=== PATIENT | female | born 1990 | race African-American/Black ===

== ENCOUNTER 2019-08-22 18:40 | Emergency (ER) | payer MEDICAID ==
[~2019-08-22] VITALS: Ht 154.9 cm; Wt 76.7 kg
[~2019-08-22 18:40] MED LIST: CYCLOBENZAPRINE10 MG ORAL
--- NOTE | 2019-08-22 19:00 | NUR ---
ED Nurse Note: Patient walked into ED c/o intermittent abdominal pain located on her lower side, patient states that she is 6 months , patient is alert and oriented x4, denies any abdominal bleeding, describes it as a sharp pain that shoots up, this is patient's first , rates her pain a 8/10 pain, IV started on left forearm 20 gauge, labs collected and sent down, will continue to monitor
--- NOTE | 2019-08-22 19:05 | NUR ---
HAND-OFF: Report given to KIMBERLY Aisf.
--- NOTE | 2019-08-22 19:06 | NUR ---
ED Nurse Note: Received report from Bry HARRIS. Patient went down for US.
[2019-08-22] MEDS ORDERED: Metoclopramide 10mg/2ml Inj IVP ONE (19:15)
[2019-08-22 20:01] LABS: APPEARANCE,URINE CLEAR; BILIRUBIN, URINE NEGATIVE (NEGATIVE); COLOR,URINE PALE YELLOW; GLUCOSE, URINE (UA) NEGATIVE (NEGATIVE); KETONES,URINE NEGATIVE (NEGATIVE); LEUKOCYTE ESTERASE ,URINE NEGATIVE (NEGATIVE); NITRITE,URINE NEGATIVE (NEGATIVE); PH,URINE 8 (4.5-8.0); PROTEIN,URINE NEGATIVE (NEGATIVE); UROBILINOGEN,URINE NORMAL MG/DL (0.0-1.0)
[2019-08-22 20:03] LABS: BASOPHILS % (AUTO) 0.5 % (0.0-2.0); EOSINOPHILS % (AUTO) 0.4 % (0.0-3.0); HEMATOCRIT 34.6 % (37.0-47.0); HEMOGLOBIN 12.3 G/DL (12.0-16.0); LYMPHOCYTES % (AUTO) 15.6 % (20.0-45.0); MEAN CORPUSCULAR VOLUME 97 FL (80-99); MONOCYTES % (AUTO) 5.4 % (1.0-10.0); NEUTROPHILS % (AUTO) 78.1 % (45.0-75.0); PLATELET COUNT 255 K/UL (150-450); RED BLOOD COUNT 3.56 M/UL (4.20-5.40); RED CELL DISTRIBUTION WIDTH 9.4 % (11.6-14.8); WHITE BLOOD COUNT 11.5 K/UL (4.8-10.8)
--- NOTE | 2019-08-22 20:06 | NUR ---
ED Nurse Note: Came back from US. Able to walk with steady gait.
[2019-08-22 20:48] LABS: ANION GAP 11 mmol/L (5-15); BLOOD UREA NITROGEN 6 mg/dL (7-18); CALCIUM 9.3 MG/DL (8.5-10.1); CARBON DIOXIDE 24 MMOL/L (21-32); CHLORIDE 106 MMOL/L (98-107); CREATININE 0.6 MG/DL (0.55-1.30); POTASSIUM 3.6 MMOL/L (3.5-5.1); SODIUM 141 MMOL/L (136-145)
[2019-08-22 20:52] LABS: ALANINE AMINOTRANSFERASE 16 U/L (12-78); ALBUMIN 3.4 G/DL (3.4-5.0); ALBUMIN/GLOBULIN RATIO 0.9 (1.0-2.7); ALKALINE PHOSPHATASE 59 U/L (46-116); ASPARTATE AMINO TRANSFERASE 17 U/L (15-37); BILIRUBIN,TOTAL 0.4 MG/DL (0.2-1.0)
--- NOTE | 2019-08-22 21:08 | Emergency Room Report ---
History of Present Illness General Chief Complaint: Complications Source: Patient Present Illness HPI 28-year-old female who is G1, P0 and 6 weeks here complaining of intermittent sharp pain in her bilateral lower abdomen that started 4 hours prior to arrival to [facility]. She denies any vaginal bleeding or spotting. Denies dizziness, headache, shortness of breath and chest pain. Denies vaginal discharge or urinary frequency or dysuria. Patient reports that she saw her OB/ RADIOLOGICAL TECHNICIAN on August 11, 2019 for the first time and ultrasound and blood work were done and all within normal limits. Patient has single gestation and has not been lifting any heavy objects or doing anything strenuous. Patient is sitting comfortably with stable vital signs. Reports minimal shortness of breath when having intermittent pain rating her pain 7 out of 10 without radiation. Patient denies any smoking or intake of medication other than her vitamins however reports that she has been taking the vitamins from day 1 of her . Complains of minimal nausea but denies diarrhea and vomiting Allergies: Coded Allergies: NO KNOWN DRUG ALLERGIES (Unverified Allergy, Unknown, 10/22/14) Patient History Past Medical History: see triage record Past Surgical History: unable to obtain Pertinent Family History: none Last Menstrual Period: 02/21/2019 Now: Yes : 1 Para: 0 Immunizations: UTD Reviewed Nursing Documentation: PMH: Agreed; PSxH: Agreed Nursing Documentation-PMH Past Medical History: No Stated History Review of Systems All Other Systems: negative except mentioned in HPI Physical Exam Vital Signs Date Time Temp Pulse Resp B/P (MAP) Pulse Ox O2 Delivery O2 Flow Rate FiO2 08/22/19 18:53 98.2 79 16 110/71 (84) 97 Room Air Sp02 EP Interpretation: reviewed, normal General Appearance: no apparent distress, alert, GCS 15, non-toxic Head: normocephalic, atraumatic Eyes: bilateral eye normal inspection, bilateral eye PERRL ENT: hearing grossly normal, normal pharynx, no angioedema, normal voice Neck: full range of motion, supple, supple/symm/no masses Respiratory: chest non-tender, lungs clear, normal breath sounds, no rhonchi, no respiratory distress, speaking full sentences Cardiovascular #1: regular rate, rhythm, no edema, no murmur Cardiovascular #2: 2+ radial (R), 2+ radial (L) Gastrointestinal: normal bowel sounds, non tender, soft, no organomegaly, no peritonitis, no guarding, no pulsatile mass, no rebound, other - Gravid Genitourinary: no CVA tenderness, ext genitalia/vag normal, other Musculoskeletal: normal inspection, back normal, digits/nails normal, gait/ station normal, normal range of motion, non-tender, no calf tenderness Neurologic: alert, oriented x3, responsive, motor strength/tone normal, sensory intact, speech normal Psychiatric: judgement/insight normal, memory normal, mood/affect normal, no suicidal/homicidal ideation Skin: no rash Lymphatic: no adenopathy Medical Decision Making PA Attestation All diagnoses and treatment plans were reviewed and discussed with my supervising physician Dr. Andre Diagnostic Impression: Primary Impression: Gurinder Sherman' contraction ER Course 28-year-old female who is G1, P0 and 6 weeks here complaining of intermittent sharp pain in her bilateral lower abdomen that started 4 hours prior to arrival to [facility]. She denies any vaginal bleeding or spotting. Denies dizziness, headache, shortness of breath and chest pain. Denies vaginal discharge or urinary frequency or dysuria. Patient reports that she saw her OB/ RADIOLOGICAL TECHNICIAN on August 11, 2019 for the first time and ultrasound and blood work were done and all within normal limits. Patient has single gestation and has not been lifting any heavy objects or doing anything strenuous. Patient is sitting comfortably with stable vital signs. Reports minimal shortness of breath when having intermittent pain rating her pain 7 out of 10 without radiation. Patient denies any smoking or intake of medication other than her vitamins however reports that she has been taking the vitamins from day 1 of her . Complains of minimal nausea but denies diarrhea and vomiting Ddx considered but are not limited to: appendicitis, Parke Sherman contractions , premature or delivery, placental abruption, Vital signs: are WNL, pt. is afebrile H&PE are most consistent with: Gurinder Sherman contraction ORDERS: OB ultrasound, CBC, CMP, UA, type and screen, tox screen, Tylenol ED INTERVENTIONS: NS bolus, Reglan DISCHARGE: At this time pt. is stable for d/c to home. Will provide printed patient care instructions, and any necessary prescriptions. Care plan and follow up instructions have been discussed with the patient prior to discharge. I advised the patient to follow-up with TUB WASH OPERATOR tomorrow for possible to the hospital that has OB onsite if worsening symptoms or any new symptoms CT/MRI/US Diagnostic Results CT/MRI/US Diagnostic Results : Imaging Test Ordered: OB US Impression FHR 141, no cervical dilation, wnl, no hemorrhage, no signs of placental abruption or previa Last Vital Signs Date Time Temp Pulse Resp B/P (MAP) Pulse Ox O2 Delivery O2 Flow Rate FiO2 08/22/19 20:36 98.2 08/22/19 18:53 79 16 110/71 (84) 97 Room Air Disposition: HOME, SELF-CARE Condition: Stable Scripts Acetaminophen* (TYLENOL EXTRA STRENGTH*) 500 Mg Tablet 500 MG ORAL Q6H PRN for Mild Pain/Temp > 100.5, #20 TAB 0 Refills Prov: Avtar Bernal 08/22/19 Referrals: NOT CHOSEN IPA/,REFERRING (PCP) Patient Instructions: Gurinder Sherman Contractions Additional Instructions: Follow-up with your TUB WASH OPERATOR in 1 day if worsening symptoms or any vaginal bleeding return to the emergency room however go to the emergency room with OB Avtar Bernal Aug 22, 2019 21:08
[2019-08-22] MEDS ORDERED: TYLENOL EXTRA500 MG ORAL (21:09)
[2019-08-22 21:23] VITALS: BP 115/79
--- NOTE | 2019-08-22 21:23 | NUR ---
ED Nurse Note: Pt cleared by ERMD for discharge. DC instructions/prescription was given and explained to pt and verbalized understanding of teachings. All medical deviecs such as ID band and Iv line removed. Pt is AAO x4, ambulatory and left with all personal belongings.
--- NOTE | 2019-08-23 10:32 | Diagnostic Imaging Report ---
Indication: 6 month female with abdominal pain Technique: Grayscale and duplex Doppler imaging of the pelvis performed utilizing a transabdominal scan and endovaginal scan. Comparison: None Findings: Single living intrauterine demonstrated. Based on sonographic criteria gestational age estimated at 24 weeks 3 days. Cervix is closed and the measures 4.5 cm in length. lie is currently transverse. Placenta is anterior and otherwise unremarkable. There is no evidence of placenta previa or abruption. RENE is 12.9 cm. anatomy not assessed comprehensively on this study. IMPRESSION: Limited OB ultrasound demonstrating active single viable IUP 24 weeks 3 days. Transverse lie. Normal RENE. Closed cervix. Note: A negative ultrasound evaluation does not insure well-being or positive outcome for the . monitoring including a nonstress test may be needed and clinical evaluation by ART EDITOR is highly recommended.
== END 2019-08-22 21:23 | disposition home or self-care (01) ==
LOC: EMR 19:02
DX: O47.02 False labor before 37 completed weeks of gestation, second trimester (principal); Z3A.24 24 weeks gestation of pregnancy
CPT/HCPCS: 36415; 76805; 80053; 80307; 81001; 84702; 85025; 86850; 86900; 86901; 96361; 96374; J2765; Z7502; 99284